=== PATIENT | female | born 1940 | race Caucasian/White ===

== ENCOUNTER 2016-08-05 12:53 | Emergency (ER) | payer MEDICARE, OTHER ==
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
[2016-08-05 15:50] LABS: Hematocrit 37 % (35-47); Hemoglobin 12.2 g/dl (12.0-16.0); Mean Corpuscular HGB Conc 33 g/dl (31-36); Mean Corpuscular Hemoglobin 28 pg (27-31); Mean Corpuscular Volume 83 fL (80-97); Mean Platelet Volume 10 um3 (7.4-10.4); Red Blood Count 4.44 10^6/ul (4.0-5.4); Red Cell Distribution Width 14 % (10.5-15); White Blood Count 8.4 10^3/ul (3.5-10.8)
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
[2016-08-05 16:15] LABS: BUN/Creatinine Ratio 30.7 (8-20); Calcium 9.6 mg/dL (8.6-10.3); EGFR African American 96.9 (>60); EGFR Non-African American 75.3 (>60); Potassium 3.5 mmol/L (3.5-5.0)
[2016-08-05] MEDS ORDERED: Iodixanol* (CONTRAST) 320 MG/ML 100 ML SDV IV ONE (16:23)
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
== END 2016-08-05 17:47 | disposition home or self-care (01) ==
LOC: ED 12:53
DX: S20.219A Contusion of unspecified front wall of thorax, initial encounter (principal); S09.90XA Unspecified injury of head, initial encounter; M25.562 Pain in left knee; M25.561 Pain in right knee; V48.5XXA Car driver injured in noncollision transport accident in traffic accident, initial encounter; Y92.410 Unspecified street and highway as the place of occurrence of the external cause; Z79.82 Long term (current) use of aspirin; E11.40 Type 2 diabetes mellitus with diabetic neuropathy, unspecified; I25.10 Atherosclerotic heart disease of native coronary artery without angina pectoris; E78.00 Pure hypercholesterolemia, unspecified; I10 Essential (primary) hypertension; J44.9 Chronic obstructive pulmonary disease, unspecified; K21.9 Gastro-esophageal reflux disease without esophagitis; R91.8 Other nonspecific abnormal finding of lung field; K76.0 Fatty (change of) liver, not elsewhere classified
CPT/HCPCS: 36415; 71260; 80048; 85025; 99281; Q9967

== ENCOUNTER 2016-08-10 12:50 | Emergency (ER) | payer OTHER ==
[2016-08-10] MEDS ORDERED: traMADol TAB* 50 MG PO ONE (15:48)
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
[2016-08-10 17:01] VITALS: BP 130/61
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
== END 2016-08-10 17:00 | disposition home or self-care (01) ==
LOC: ED 12:50
DX: M25.552 Pain in left hip (principal)
CPT/HCPCS: 72192; 99282; A9270-GY

== ENCOUNTER 2017-03-19 07:43 | Day surgery (SDC) | payer MEDICARE ==
[~2017-03-19 07:43] MED LIST: Buffered Lidocaine 0.9% SYRIN* 5 ML/SYR SYRINGE INTRADERM ONE
[2017-03-19] MEDS ORDERED: Buffered Lidocaine 0.9% SYRIN* 5 ML/SYR SYRINGE ONE (08:04)
[2017-03-19 08:31] LABS: Hematocrit 37 % (35-47); Hemoglobin 12.3 g/dl (12.0-16.0); Mean Corpuscular HGB Conc 33 g/dl (31-36); Mean Corpuscular Hemoglobin 29 pg (27-31); Mean Corpuscular Volume 86 fL (80-97); Mean Platelet Volume 10 um3 (7.4-10.4); Red Blood Count 4.31 10^6/ul (4.0-5.4); Red Cell Distribution Width 15 % (10.5-15); White Blood Count 5.8 10^3/ul (3.5-10.8)
[2017-03-19] MEDS ORDERED: oxyCODONE/Acetamin 5/325 MG* TAB PO PRN ×2 (08:39→09:49)
[2017-03-19] MEDS ORDERED: fentaNYL* 50 MCG/ML 2 ML VIAL (100 MCG VIAL) ONE (08:55)
[2017-03-19] MEDS ORDERED: Lidocaine 2% PF * 5 ML VIAL ONE (08:55)
[2017-03-19] MEDS ORDERED: Propofol* 10 MG/ML 20 ML BTL IV PUSH ONE (08:55)
[2017-03-19 10:22] VITALS: BP 154/71
--- NOTE | 2017-03-20 00:19 | OP ---
DATE OF OPERATION: 03/19/17 [facility] DATE OF : 42 SURGEON: Dr. Salo Cabral. ANESTHESIOLOGIST: Dr. Biju Bruce. ANESTHESIA: General endotracheal anesthesia. PRE-OP DIAGNOSIS: Thickened endometrium. POST-OP DIAGNOSIS: Thickened endometrium. OPERATIVE PROCEDURE: Dilation, hysteroscopy, curettage. ESTIMATED BLOOD LOSS: Minimal, less than 20 cc. FINDINGS: Small anteverted uterus. There is a palpable posterior fibroid that feels to be approximately 4 cm in size. The uterus sounds to 8. There were no adnexal masses palpated. There is wide appearing tissue on the posterior surface of the uterus. The tissue felt very hard and thick consistent with fibroid. COMPLICATIONS: None. COUNTS: Sponge, lap, and needle count correct x2. CONDITION: The patient was brought to recovery room awake and in stable condition. DESCRIPTION OF PROCEDURE: The patient was brought to the operating room. When general anesthesia was found to be adequate, the patient was prepped and draped in the usual sterile fashion in the dorsal lithotomy position. Exam under anesthesia was performed with the above findings noted. Weighted speculum was placed in the vagina. The anterior lip of the cervix was grasped with a single tooth tenaculum and the cervix was gently and easily dilated with a graduated Light dilators. The hysteroscope was introduced. An approximately 2 cm flat- appearing mass was noted in the posterior uterine wall. It is very white in appearance. Curettage was performed. Using operative scope, portion of the mass was excised with the scissors that felt very hard and consistent with a feeling of myoma. The curettings were sent to pathology. The single tooth tenaculum was removed from the anterior lip of the cervix. Excellent hemostasis was noted. All instruments were removed from the vagina and the patient was brought to the recovery room awake and in stable condition. [id number]/[facility] #: [id number] MATA
== END 2017-03-19 10:51 | disposition home or self-care (01) ==
LOC: OR 07:43
PROVIDERS: ATTEND Obstetrics & Gynecology
DX: N85.00 Endometrial hyperplasia, unspecified (principal); D25.9 Leiomyoma of uterus, unspecified; E11.9 Type 2 diabetes mellitus without complications; I10 Essential (primary) hypertension; J44.9 Chronic obstructive pulmonary disease, unspecified; M10.9 Gout, unspecified; Z79.84 Long term (current) use of oral hypoglycemic drugs
CPT/HCPCS: 36415; 85025; 86850; 86900; 86901; 88305; J2704; J3010

== ENCOUNTER 2017-07-08 09:14 | Emergency (ER) | payer MEDICARE ==
--- OUTSIDE RECORDS SUMMARY | 2017-07-08 10:02 | XMS REPORT ---
:1940 External Reference #:[id number] Author Organization [employer] Address [address] [place] [address] Phone [phone] Care Team Providers Name Role Phone Sunitha Benitez M.D. Primary Care Physician Unavailable Payers Type Date Identification Numbers Payment Provider Subscriber Medicare Primary Effective: Policy Number: Medicare - NGS Digna Arrieta 1997 [id number] PayID: [id number] [address] [place] [address] Medigap Part B Policy Number: [id number] [facility] Digna Arrieta PayID: [id number] [address] [place] [address] Problems Date Description Provider Status Onset: Neoplasm of breast Active Onset: Chronic obstructive lung disease Active Onset: Acid reflux Active Onset: Type 2 diabetes mellitus Active Onset: Essential hypertension Active Onset: Spinal stenosis Active Onset: Pure hypercholesterolemia Active Onset: 01/09/2015 Internal hordeolum Kassidy Vasquez O.D. Active Onset: 01/09/2015 Nuclear senile cataract Kassidy Vasquez O.D. Active Onset: 05/23/2015 Vitreous degeneration Kassidy Vasquez O.D. Active Onset: 05/23/2015 Blepharitis Kassidy Vasquez O.D. Active Onset: 06/26/2015 Retinal drusen Kassidy Vasquez O.D. Active Onset: 06/26/2015 Combined form of senile cataract Kassidy Vasquez O.D. Active Onset: 02/04/2016 Bilateral narrow angle of anterior Talon Mayes M.D. Active chamber of eyes Onset: 02/04/2016 Nonexudative age-related macular Talon Mayes M.D. Active degeneration Onset: 05/02/2016 Nexdtve age-related mclr degn, right Talon Mayes M.D. Active eye, stage unspecified Onset: 05/02/2016 Age-related exudative macular Talon Mayes M.D. Active degeneration of right eye Onset: 05/02/2016 Age-related nonexudative macular Talon Mayes M.D. Active degeneration of left eye Onset: 05/13/2016 Presence of intraocular lens Talon Mayes M.D. Active Onset: 05/15/2016 Nexdtve age-related mclr degn, Talon Mayes M.D. Active bilateral, early dry stage Onset: 07/15/2016 Age-related exudative macular Talon Mayes M.D. Active degeneration of right eye Onset: 06/09/2017 Punctate keratitis Talon Mayes M.D. 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 Visine Advanced 05/22/ Active Solution 0.05-0.1-1 three Kassidy Relief 2014 -1% times a Cassandra Vasquez, day as O.D. needed Glipizide / Active Tablets 10mg Unknown 0000 Metformin HCL / Active Tablets 500mg Unknown 0000 Aspirin / Active Tablets DR 81mg Unknown 0000 Losartan / Active Tablets 25mg Unknown Potassium 0000 Omeprazole / Active Capsules DR 10mg Unknown 0000 Simvastatin / Active Tablets 10mg Unknown 0000 Atenolol / Active Tablets 25mg Unknown 0000 Tamoxifen / Active Tablets 10mg Unknown Citrate 0000 Potassium / Active Tablets 75mg Unknown 0000 Magnesium / Active Capsules 300mg Unknown 0000 Vitamin D / Active Tablets 1000Unit 1 by Unknown (Cholecalcifero 0000 mouth l) twice a day Cinnamon / Active Capsules 500mg 1 by Unknown 0000 mouth every day Chromium / Active Tablets 200mcg Unknown 0000 Similasan Dry / Active Solution as needed Talon Ward Eye Relief 0000 Lincoln Mayes Ciprofloxacin 05/02/ Hx Solution 0.3% 10ml instill Surgical HCL 2016 - one drop Preop 06/09/ in the 2016 right eye three times a day, start the day before surgery Ketorolac 05/02/ Hx Solution 0.5% 10ml use one Surgical Tromethamine 2016 - drop in Preop 05/12/ the right 2016 eye three times a day, start the day before surgery Prednisolone 05/02/ Hx Suspension 1% 15ml 1 drops Talon Ward Acetate 2015 - left eye Arleo, 06/09/ three M.D. 2016 times a day. taper as directed Pilocarpine HCL 02/03/ Hx Solution 2% 15ml One drop H40.033 Talon Ward 2016 - in both Arleo, 05/06/ eyes once M.D. 2015 per day Systane 06/25/ Hx Gel 0.3% Kassidy Overnight 2014 - Cassandra Vasquez, Therapy 02/11/ O.D. Lubricant Eye 2017 Refresh Optive 01/08/ Hx Solution 0.5-0.9% 1 drop Kassidy 2014 - both eyes Cassandra Vasquez, 02/11/ three O.D. 2017 times a day Medications Administered in Office Medication Date Status Form Strength Qnty SIG Indications Ordering Provider Avastin Administered Injection Talon Ward Bevacizumab Tsering Mayes M.D. Avastin Administered Injection Talon Ward Bevacizumab Tsering Mayes M.D. Avastin Administered Injection Talon Ward Bevacizumab Tsering Mayes M.D. Avastin Administered Injection Talon Ward Bevacizumab 017 Lincoln Mayes Avastin Administered Injection Talon Ward Bevacizumab 017 Lincoln Mayes Avastin Administered Injection Talon Ward Bevacizumab 017 Lincoln Mayes Avastin Administered Injection Talon Ward Bevacizumab 017 Lincoln Mayes Avastin Administered Injection Talon Ward Bevacizumab 017 Lincoln Mayes Avastin Administered Injection Talon Ward Bevacizumab 016 Lincoln Mayes Avastin Administered Injection Talon Ward Bevacizumab 016 Lincoln Mayes Vital Signs Date Vital Result Comment 06/08/2017 BP Systolic 115 mmHg BP Diastolic 66 mmHg Heart Rate 66 /min Respiratory Rate 14 /min 04/20/2017 BP Systolic 126 mmHg BP Diastolic 63 mmHg Heart Rate 64 /min Respiratory Rate 14 /min 02/02/2017 BP Systolic 118 mmHg BP Diastolic 60 mmHg Heart Rate 62 /min Respiratory Rate 15 /min 12/29/2016 BP Systolic 124 mmHg BP Diastolic 56 mmHg Heart Rate 68 /min Respiratory Rate 14 /min 11/24/2016 BP Systolic 137 mmHg BP Diastolic 78 mmHg Heart Rate 67 /min Respiratory Rate 14 /min 10/27/2016 BP Systolic 130 mmHg BP Diastolic 60 mmHg Heart Rate 76 /min Respiratory Rate 12 /min 09/30/2016 BP Systolic 136 mmHg BP Diastolic 70 mmHg Heart Rate 70 /min Respiratory Rate 12 /min 07/15/2016 BP Systolic 138 mmHg BP Diastolic 65 mmHg Heart Rate 64 /min Respiratory Rate 16 /min 06/10/2016 BP Systolic 151 mmHg BP Diastolic 85 mmHg Heart Rate 66 /min Respiratory Rate 16 /min 05/06/2016 BP Systolic 181 mmHg BP Diastolic 95 mmHg Heart Rate 70 /min Respiratory Rate 16 /min Results Test Date Test Result H/L Range Note Laboratory test finding 05/14/2016 Point of Care Glucose 144 mg/dL High 74 -106 1 Laboratory test finding 05/07/2016 Point of Care Glucose 161 mg/dL High 74 -106 2 1 Cab Driver: [id number] MONTEZ Villeda 2 Cab Driver: [id number] KATHARINA BARFIELD Procedures Date CPT Code Description Status 06/08/2017 53699 Injection Intravitreal Of A Pharmacologic Agent Completed 04/20/2017 13451 Injection Intravitreal Of A Pharmacologic Agent Completed 02/12/2017 31371 Scanning Computerized Opthalmic Diagnostic Posterior Completed Seg Retina 02/12/2017 82587 Est Patient Comprehensive Exam Completed 02/02/2017 55940 Injection Intravitreal Of A Pharmacologic Agent Completed 12/29/2016 07533 Injection Intravitreal Of A Pharmacologic Agent Completed 11/24/2016 73838 Injection Intravitreal Of A Pharmacologic Agent Completed 11/11/2016 35049 Est Patient Comprehensive Exam Completed 11/11/2016 18575 Scanning Computerized Opthalmic Diagnostic Posterior Completed Seg Retina 10/27/2016 10375 Injection Intravitreal Of A Pharmacologic Agent Completed 09/30/2016 46468 Injection Intravitreal Of A Pharmacologic Agent Completed 08/13/2016 16167 Scanning Computerized Opthalmic Diagnostic Posterior Completed Seg Retina 08/13/2016 09563 Est Patient Intermediate Exam Completed 07/15/2016 77165 Injection Intravitreal Of A Pharmacologic Agent Completed 06/10/2016 04196 Injection Intravitreal Of A Pharmacologic Agent Completed 05/14/2016 25061 Extracapsular Cataract Extraction W/Intraocular Lens Completed 05/07/2016 00799 Extracapsular Cataract Extraction W/Intraocular Lens Completed 05/06/2016 17947 Injection Intravitreal Of A Pharmacologic Agent Completed 05/02/2016 92952 Ophthalmic Biometry Completed 05/02/2016 08847 Ophthalmic Biometry Completed 05/02/2016 83519 Scanning Computerized Opthalmic Diagnostic Posterior Completed Seg Retina 02/04/2016 15084 Gonioscopy Completed 02/04/2016 71283 Est Patient Intermediate Exam Completed 06/26/2015 65963 Est Patient Intermediate Exam Completed 05/23/2015 29341 Est Patient Comprehensive Exam Completed 01/09/2015 42916 Est Patient Comprehensive Exam Completed 05/31/2012 55816 New Patient Comprehensive Exam Completed 05/31/2012 79268 Determination Of Refractive State Completed 06/18/2009 91771 Scanning Laser W/Interp And Report Completed 06/18/2009 02859 Determination Of Refractive State Completed 06/18/2009 07668 Est Patient Comprehensive Exam Completed 06/16/2009 65719 New Patient Intermediate Exam Completed 06/07/2004 33095 Fundus Photography With Interpretation And Report Completed 06/07/2004 50007 Determination Of Refractive State Completed 06/07/2004 05007 New Patient Comprehensive Exam Completed Encounters Type Date Location Provider CPT E/M Dx Office Visit 05/02/2016 Talon Mayes MD, [place], [address] H25.812 9:45a pc M.D. H25.811 H40.033 E11.9 H35.3211 H35.3121 Plan of Care Future Appointment(s):06/15/2017 11:30 am - Talon Mayes M.D. at Talon Mayes MD, 06/09/2017 - Talon Mayes M.D.H16.141 Punctate keratitis, right eyeComments:Smoking can increase the risk of developing or worsening any eye related disease, as well as affect your overall health. If you are a smoker , we strongly recommend that you quit.If you are not a smoker, we strongly recommend that you do not start.
--- OUTSIDE RECORDS SUMMARY | 2017-07-08 10:02 | XMS REPORT ---
:1940 External Reference #:[id number] Author Organization [employer] Address [address] [place] [address] Phone [phone] Care Team Providers Name Role Phone Sunitha Benitez M.D. 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 Warm Compresses 06/25/ Active twice a Kassidy 2014 day as danette Rea O.D. Glipizide / Active Tablets 10mg Unknown 0000 [...] D / Active Tablets 1000Unit 1 by mouth Unknown (Cholecalcifero 0000 twice a l) day Cinnamon / Active Capsules 500mg 1 by mouth Unknown 0000 every day Chromium / Active Tablets 200mcg Unknown 0000 Similasan Dry / Active Solution at least 4 Talon J. Eye Relief 0000 times a Arleo, day M.D. Atenolol-Chlort / Active Tablets 50-25mg Unknown halidone 0000 Klor-Con M20 / Active Tablets ER 20Meq Unknown 0000 Ciprofloxacin 05/02/ Hx Solution 0.3% 10ml instill [...] 1% 15ml 1 drops Talon Ward Acetate 2016 - left eye Arleo, 06/09/ three M.D. 2016 times a day. taper as directed Pilocarpine HCL 02/03/ Hx Solution 2% 15ml One drop H40.033 Talon Ward 2016 - in both Arleo, 05/06/ eyes once M.D. 2016 per day Systane 06/25/ Hx Gel 0.3% Kassidy Overnight 2014 - Cassandra Vasquez, Therapy 02/11/ O.D. Lubricant Eye 2017 Refresh Optive 01/08/ Hx Solution 0.5-0.9% 1 drop Kassidy 2014 - both eyes Cassandra Vasquez, 02/11/ three O.D. 2017 times a day Medications Administered in Office Medication Date Status Form Strength Qnty SIG Indications Ordering Provider Avastin Administered Injection Talon Ward Bevacizumab 017 [...] 161 mg/dL High 74 -[address] Operator: [id number] MONTEZ Villed[address] Operator: [id number] BARFIELD Procedures Date CPT Code Description Status 06/08/2017 65915 Injection Intravitreal Of A Pharmacologic Agent Completed 04/20/2017 65712 Injection Intravitreal Of A Pharmacologic Agent Completed 02/12/2017 70019 Scanning Computerized Opthalmic Diagnostic Posterior Completed Seg Retina 02/12/2017 98908 Est Patient Comprehensive Exam Completed 02/02/2017 22976 Injection Intravitreal Of A Pharmacologic Agent Completed 12/29/2016 57422 Injection Intravitreal Of A Pharmacologic Agent Completed 11/24/2016 51215 Injection Intravitreal Of A Pharmacologic Agent Completed 11/11/2016 80474 Est Patient Comprehensive Exam Completed 11/11/2016 83077 Scanning Computerized Opthalmic Diagnostic Posterior Completed Seg Retina 10/27/2016 12639 Injection Intravitreal Of A Pharmacologic Agent Completed 09/30/2016 79440 Injection Intravitreal Of A Pharmacologic Agent Completed 08/13/2016 56233 Scanning Computerized Opthalmic Diagnostic Posterior Completed Seg Retina 08/13/2016 02328 Est Patient Intermediate Exam Completed 07/15/2016 58641 Injection Intravitreal Of A Pharmacologic Agent Completed 06/10/2016 30149 Injection Intravitreal Of A Pharmacologic Agent Completed 05/14/2016 31431 Extracapsular Cataract Extraction W/Intraocular Lens Completed 05/07/2016 06243 Extracapsular Cataract Extraction W/Intraocular Lens Completed 05/06/2016 88800 Injection Intravitreal Of A Pharmacologic Agent Completed 05/02/2016 67598 Ophthalmic Biometry Completed 05/02/2016 69379 Ophthalmic Biometry Completed 05/02/2016 01218 Scanning Computerized Opthalmic Diagnostic Posterior Completed Seg Retina 02/04/2016 98004 Gonioscopy Completed 02/04/2016 29874 Est Patient Intermediate Exam Completed 06/26/2015 96328 Est Patient Intermediate Exam Completed 05/23/2015 81945 Est Patient Comprehensive Exam Completed 01/09/2015 75736 Est Patient Comprehensive Exam Completed 05/31/2012 78213 New Patient Comprehensive Exam Completed 05/31/2012 96500 Determination Of Refractive State Completed 06/18/2009 22035 Scanning Laser W/Interp And Report Completed 06/18/2009 01858 Determination Of Refractive State Completed 06/18/2009 51849 Est Patient Comprehensive Exam Completed 06/16/2009 54095 New Patient Intermediate Exam Completed 06/07/2004 67538 Fundus Photography With Interpretation And Report Completed 06/07/2004 14912 Determination Of Refractive State Completed 06/07/2004 17169 New Patient Comprehensive Exam Completed Encounters Type Date Location Provider CPT E/M Dx Office Visit 05/02/2016 Talon Mayes MD, Talon Mayes, [address] H25.812 9:45a gerda Stark H25.811 H40.033 E11.9 H35.3211 H35.3121 Plan of Care 06/15/2017 - Talon Mayes M.D.H35.3211 Exdtve age-rel mclr degn, right eye, with actv chrdl neovasComments:Smoking can increase the risk of developing or worsening any eye related disease, as well as affect your overall health. If you are a smoker, we strongly recommend that you quit.If you are not a smoker, we strongly recommend that you do not start. Dr. Mayes can detect changes in your Macular Degeneration that require treatment in your right eye. It is very important to keep all of your appointments and follow Dr. Mayes's instructions. If you have any questions, please call our office.Follow up:See Procedure Order LogH35.3121 Nexdtve age-related mclr degn, left eye, early dry stageComments:You have Macular Degeneration. Check your Amsler Grid, with each eye separately, and take the AREDS II formula vitamins. If you notice any changes in your vision, please call the office and schedule anappointment to see any of the doctors here.E11.9 Type 2 diabetes mellitus without complicationsComments:You have diabetes. I do not detect any changes in both of your retinas from diabetes at this time. Proper control of your diabetes is important for the health of your eyes. Changes in your eyes from diabetes can happen without symptoms, so it is important that you have your eyes examined. Dr. Mayes has sent a report to your primary care doctor, letting them know there is no damage from the Diabetes in your eyes.Z96.1 Presence of intraocular lensComments:The artificial lens implants in both eyes appear to be stable at this time.
--- NOTE | 2017-07-08 10:15 | RAD ---
HISTORY: Right foot pain, toe pain, history of gout, trauma COMPARISONS: May 21, 2013 VIEWS: 6, Frontal, lateral, and oblique views of the right foot and of the first digit of the right foot FINDINGS: BONE DENSITY: Normal. BONES: There is no displaced fracture. There is a calcaneal enthesophyte. JOINTS: There is mild osteoarthritis of the first MTP joint. ALIGNMENT: There is no dislocation. SOFT TISSUES: Unremarkable. OTHER FINDINGS: None. IMPRESSION: NO ACUTE OSSEOUS INJURY. IF SYMPTOMS PERSIST, RECOMMEND REPEAT IMAGING.
[2017-07-08] MEDS ORDERED: Cephalexin CAP* 500 MG PO ONE (11:09)
--- NOTE | 2017-07-08 11:15 | ED ---
Shmuel Roldan Tecjoon, scribed for Jean-Pierre Patricia MD on 07/08/17 at 1102 . Lower Extremity - HPI Summary HPI Summary: This patient is a 77 year old female presenting to [facility] accompanied by family with a chief complaint of right toe injury since 3 days ago. Patient states that a can fell on her right toe and injured it on . The pain is rated 8/10 in severity. Symptoms aggravated by movement, palpation.. Symptoms alleviated by nothing. The patient reports no other complaints at this time. - History of Current Complaint Chief Complaint: EDExtremityLower Stated Complaint: RIGHT FOOT PAIN Time Seen by Provider: 07/08/17 10:34 Hx Obtained From: Patient Mechanism Of Injury: Blunt Trauma - dropped can Onset of Pain: Immediate Onset/Duration: Still Present - 3 Severity Currently: Severe Pain Intensity: 8 Pain Scale Used: 0-10 Numeric Timing: Constant Location: Is Discrete @ - right toe Aggravating Factor(s): Movement, Other - palpation Alleviating Factor(s): Nothing - Allergies/Home Medications Allergies/Adverse Reactions: Allergies Allergy/AdvReac Type Severity Reaction Status Date / Time Naproxen [From Naprosyn] Allergy Mild Swelling Verified 03/19/17 08:09 Of Face,Lips,& Throat PAPER TAPE Allergy Rash Uncoded 03/19/17 08:09 PMH/Surg Hx/FS Hx/Imm Hx Previously Healthy: No Endocrine/Hematology History: Reports: Hx Diabetes - TYPE 2, Hx Anemia - on iron Denies: Hx Anticoagulant Therapy - 81mg ASA daily, Hx Blood Disorders Cardiovascular History: Reports: Hx Coronary Artery Disease - CHOLESTEROL CONTROL WITH MED, Hx Hypertension - W/MEDS, 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 RIGHT BREAST LUMPECTOMY AGE 20, [facility]. 1972 BILATERAL TUBAL LIGATION, [facility]. TONSILECTOMY, AGE 12. FACIAL SKIN CANCER. CATARACT REPAIR. 03/19/17 - D & C Hx Anesthesia Reactions: No Infectious Disease History: No Infectious Disease History: Denies: Traveled Outside the [place] in Last 30 Days - Family History Known Family History: Positive: Diabetes - Social History Alcohol Use: None Hx Substance Use: No Substance Use Type: Reports: None Hx Tobacco Use: No Smoking Status (MU): Never Smoked Tobacco Have You Smoked in the Last Year: No Review of Systems Negative: Fever Positive: Other - right toe pain All Other Systems Reviewed And Are Negative: Yes Physical Exam Triage Information Reviewed: Yes Vital Signs On Initial Exam: Initial Vitals Temp Pulse Resp BP Pulse Ox 97.0 F 67 16 131/55 97 07/08/17 09:16 07/08/17 09:16 07/08/17 09:16 07/08/17 09:16 07/08/17 09:16 Vital Signs Reviewed: Yes Appearance: Positive: Well-Appearing, No Pain Distress Skin: Positive: Other - redness skin over the 1st toe right foot MP area. Head/Face: Positive: Normal Head/Face Inspection Neck: Positive: Supple, Nontender Respiratory/Lung Sounds: Positive: Clear to Auscultation, Breath Sounds Present Cardiovascular: Positive: RRR, Pulses are Symmetrical in both Upper and Lower Extremities. Negative: Murmur Musculoskeletal: Positive: Other - slight tenderness over the right 1st MP joint right foot. with mild erythema over the same area. Neurological: Positive: Normal, Sensory/Motor Intact, Alert, Oriented to Person Place, Time, CN Intact II-III Psychiatric: Positive: Normal - Marc Coma Scale Best Eye Response: 4 - Spontaneous Best Motor Response: 6 - Obeys Commands Best Verbal Response: 5 - Oriented Coma Scale Total: 15 Diagnostics - Vital Signs Vital Signs Temp Pulse Resp BP Pulse Ox 07/08/17 09:16 97.0 F 67 16 131/55 97 - Laboratory Lab Statement: Any lab studies that have been ordered have been reviewed, and results considered in the medical decision making process. - Radiology Toe XR Xray Interpretation: No Acute Changes - IMPRESSION: NO ACUTE OSSEOUS INJURY. IF SYMPTOMS PERSIST, RECOMMEND REPEAT IMAGING. ED physician has reviewed this radiology report. Radiology Interpretation Completed By: Radiologist Foot XR Xray Interpretation: No Acute Changes - IMPRESSION: NO ACUTE OSSEOUS INJURY. IF SYMPTOMS PERSIST, RECOMMEND REPEAT IMAGING. ED physician has reviewed this radiology report. Radiology Interpretation Completed By: Radiologist Lower Extremity Course/Dx - Course Course Of Treatment: This patient is a 77 year old female presenting to [facility] accompanied by family with a chief complaint of right toe injury since 3 days ago. Patient states that a can fell on her right toe and injured it on neel. The pain is rated 8/10 in severity. Symptoms aggravated by movement, palpation.. Symptoms alleviated by nothing. The patient reports no other complaints at this time. Toe XR reveals, per radiologist, IMPRESSION: NO ACUTE OSSEOUS INJURY. IF SYMPTOMS PERSIST, RECOMMEND REPEAT IMAGING. ED physician has reviewed this radiology report. Foot XR reveals, per radiologist, IMPRESSION: NO ACUTE OSSEOUS INJURY. IF SYMPTOMS PERSIST, RECOMMEND REPEAT IMAGING. ED physician has reviewed this radiology report. In the ED course the patient was given Keflex. 77 yr old with injury to right great toe MP area and no some early cellulitis. Will rx with keflex and then DC home to follow up with PMD. Post op shoe - Diagnoses Provider Diagnoses: Cellulitis of toe of left foot Discharge - Discharge Plan Condition: Good Disposition: HOME Prescriptions: Cephalexin CAP* [Keflex CAP*] 500 mg PO QID #40 cap Patient Education Materials: Cellulitis (ED), Contusion in Adults (ED) Referrals: Sunitha Zambrano MD [Primary Care Provider] - 2 Days The documentation as recorded by the Shmuel turk Tecjoon accurately reflects the service I personally performed and the decisions made by , Jean-Pierre Patricia MD.
[2017-07-08 11:40] VITALS: BP 135/59
== END 2017-07-08 11:39 | disposition home or self-care (01) ==
LOC: ED 09:14
DX: L03.032 Cellulitis of left toe (principal)
CPT/HCPCS: 99282; A9270-GY

== ENCOUNTER 2018-01-31 08:32 | Emergency (ER) | payer MEDICARE ==
--- OUTSIDE RECORDS SUMMARY | 2018-01-31 08:44 | XMS REPORT ---
:1940 External Reference #:[id number] Author Organization [employer] Address [address] [place] [address] Phone [phone] Care Team Providers Name Role Phone Sunitha Benitez M.D. Primary Care Physician Unavailable Payers Type Date Identification Numbers Payment Provider Subscriber Medicare Primary Effective: Policy Number: Medicare - NGS Digna Arrieta 1998 [id number] PayID: [id number] [address] [place] [address] Medigap Part B Policy Number: [id number] [facility] Digna Arrieta PayID: [id number] [address] [place] [address] Problems Date Description Provider Status Onset: Neoplasm [...] 06/09/2017 Punctate keratitis Talon Mayes M.D. Active Onset: 01/04/2018 Retinal edema Talon Mayes M.D. 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 ETOH Use Denies alcohol [...] 06/09/ Active Solution 0.25% at least 4 Talon Ward 2017 times a Arleo, day M.DBrandy Warm Compresses 06/25/ Active twice a Kassidy 2014 as danette Rea OMeek Glipizide / Active Tablets 10mg Unknown 0000 [...] Unknown (Cholecalcifero 0000 twice a l) day Chromium / Active Tablets 200mcg Unknown Similasan Dry / Active Solution at least 4 Talon Ed Eye Relief 0000 times a Arleo, day [...] Provider Avastin Administered Injection Talon Ward Bevacizumab 018 Lincoln Mayes Avastin Administered Injection Talon Ward Bevacizumab 018 [place] Mayes Avastin Administered Injection Talon Ward Bevacizumab 018 [place] Mayes Avastin Administered Injection Talon Ward [...] Mayes Vital Signs Date Vital Result Comment 01/04/2018 BP Systolic 126 mmHg BP Diastolic 60 mmHg Heart Rate 62 /min Respiratory Rate 16 /min 10/26/2017 BP Systolic 113 mmHg BP Diastolic 68 mmHg Heart Rate 65 /min Respiratory Rate 15 /min 08/24/2017 BP Systolic 129 mmHg BP Diastolic 67 mmHg Heart Rate 65 /min Respiratory Rate 15 /min 06/08/2017 BP Systolic 115 mmHg BP Diastolic [...] 161 mg/dL High 74 -106 2 1 Dinkey Engine Mechanic: INES MONTEZ STEFANIE Villeda 2 Dinkey Engine Mechanic: [id number] KATHARINA BARFIELD Procedures Date CPT Code Description Status 01/04/2018 35766 Injection Intravitreal Of A Pharmacologic Agent Completed 10/26/2017 84390 Injection Intravitreal Of A Pharmacologic Agent Completed 08/24/2017 65787 Injection Intravitreal Of A Pharmacologic Agent Completed 06/15/2017 87455 Scanning Computerized Opthalmic Diagnostic Posterior Completed Seg Retina 06/15/2017 68095 Est Patient Intermediate Exam Completed 06/08/2017 57967 Injection Intravitreal Of A Pharmacologic Agent Completed 04/20/2017 02698 Injection Intravitreal Of A Pharmacologic Agent Completed 02/12/2017 76749 Scanning Computerized Opthalmic Diagnostic Posterior Completed Seg Retina 02/12/2017 82537 Est Patient Comprehensive Exam Completed 02/02/2017 67367 Injection Intravitreal Of A Pharmacologic Agent Completed 12/29/2016 31411 Injection Intravitreal Of A Pharmacologic Agent Completed 11/24/2016 90808 Injection Intravitreal Of A Pharmacologic Agent Completed 11/11/2016 48940 Scanning Computerized Opthalmic Diagnostic Posterior Completed Seg Retina 11/11/2016 20268 Est Patient Comprehensive Exam Completed 10/27/2016 40993 Injection Intravitreal Of A Pharmacologic Agent Completed 09/30/2016 28019 Injection Intravitreal Of A Pharmacologic Agent Completed 08/13/2016 11797 Scanning Computerized Opthalmic Diagnostic Posterior Completed Seg Retina 08/13/2016 52099 Est Patient Intermediate Exam Completed 07/15/2016 57684 Injection Intravitreal Of A Pharmacologic Agent Completed 06/10/2016 16933 Injection Intravitreal Of A Pharmacologic Agent Completed 05/14/2016 55493 Extracapsular Cataract Extraction W/Intraocular Lens Completed 05/07/2016 54028 Extracapsular Cataract Extraction W/Intraocular Lens Completed 05/06/2016 78012 Injection Intravitreal Of A Pharmacologic Agent Completed 05/02/2016 85797 Ophthalmic Biometry Completed 05/02/2016 84704 Ophthalmic Biometry Completed 05/02/2016 20634 Scanning Computerized Opthalmic Diagnostic Posterior Completed Seg Retina 02/04/2016 27489 Gonioscopy Completed 02/04/2016 49460 Est Patient Intermediate Exam Completed 06/26/2015 84236 Est Patient Intermediate Exam Completed 05/23/2015 13962 Est Patient Comprehensive Exam Completed 01/09/2015 82316 Est Patient Comprehensive Exam Completed 05/31/2012 84053 Determination Of Refractive State Completed 05/31/2012 78706 New Patient Comprehensive Exam Completed 06/18/2009 61763 Scanning Laser W/Interp And Report Completed 06/18/2009 85953 Determination Of Refractive State Completed 06/18/2009 17376 Est Patient Comprehensive Exam Completed 06/16/2009 41131 New Patient Intermediate Exam Completed 06/07/2004 03696 Fundus Photography With Interpretation And Report Completed 06/07/2004 64354 Determination Of Refractive State Completed 06/07/2004 25105 New Patient Comprehensive Exam Completed Encounters Type Date Location Provider CPT E/M Dx Office Visit 05/02/2016 Talon Mayes MD, [place], [address] H25.812 9:45a gerda Stark H25.811 H40.033 E11.9 H35.3211 H35.3121 Plan of Care 01/15/2018 - Talon Mayes M.D.H35.3211 Exdtve age-rel mclr [...] you have any questions, please call our office. You havewet Macular Degeneration. Check your Amsler Grid, with each eye separately, and take the AREDS II formula vitamins. If you notice any changes in your vision, please call the office and schedule an appointment to see any of the doctors here.Follow up:See Procedure Order [id number] Nexdtve age-related mclr [...]
[2018-01-31] MEDS ORDERED: Ibuprofen TAB* 600 MG PO ONE (09:08)
--- NOTE | 2018-01-31 09:31 | ED ---
Neck Pain - HPI Summary HPI Summary: 77-year-old female presents with neck pain for the past 2 days. States she was moving vine and develop pain on the right side of her neck. No midline tenderness. No weakness. No numbness and tingling. No other injury. Patient has been massage area and placing heat and ice. She states she cannot sleep due to the pain. She denies any history of neck pain. She has had previous lower back surgeries. No headache. No fevers. No neck stiffness. She isn't taking Tylenol for pain. - History of Current Complaint Chief Complaint: EDNeckComplaint Stated Complaint: NECK PAIN Time Seen by Provider: 01/31/18 08:57 Pain Intensity: 7 - Allergies/Home Medications Allergies/Adverse Reactions: Allergies Allergy/AdvReac Type Severity Reaction Status Date / Time naproxen Allergy Intermediate Swelling Verified 09/28/17 12:05 Of Face,Lips,& Throat PAPER TAPE Allergy Rash Uncoded 03/19/17 08:09 PMH/Surg Hx/FS Hx/Imm Hx Endocrine/Hematology History: Reports: Hx Diabetes - TYPE 2, Hx Anemia - on iron Denies: Hx Anticoagulant Therapy - 81mg ASA daily, Hx Blood Disorders Cardiovascular History: Reports: Hx Coronary Artery Disease - CHOLESTEROL CONTROL WITH MED, Hx Hypertension - W/MEDS, 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 RIGHT BREAST LUMPECTOMY AGE 20, [place]. 1971 BILATERAL TUBAL LIGATION, [place]. TONSILECTOMY, AGE 12. FACIAL SKIN CANCER. CATARACT REPAIR. 03/19/17 - D & C Hx Anesthesia Reactions: No Infectious Disease History: No Infectious Disease History: Denies: Traveled Outside the [place] in Last 30 Days - Family History Known Family History: Positive: Diabetes - Social History Alcohol Use: None Hx Substance Use: No Substance Use Type: Reports: None Hx Tobacco Use: No Smoking Status (MU): Never Smoked Tobacco Have You Smoked in the Last Year: No Review of Systems Negative: Fever Negative: Chest Pain Negative: Shortness Of Breath Positive: Myalgia - neck pain All Other Systems Reviewed And Are Negative: Yes Physical Exam Triage Information Reviewed: Yes Vital Signs On Initial Exam: Initial Vitals Temp Pulse Resp BP Pulse Ox 97.6 F 66 16 142/64 96 01/31/18 08:34 01/31/18 08:34 01/31/18 08:34 01/31/18 08:34 01/31/18 08:34 Vital Signs Reviewed: Yes Appearance: Positive: Well-Appearing Skin: Positive: Warm, Dry Head/Face: Positive: Normal Head/Face Inspection Eyes: Positive: Normal, Conjunctiva Clear ENT: Positive: Pharynx normal Neck: Positive: Other: - tenderness right side of neck, no midline tenderness, full ROM of neck Respiratory/Lung Sounds: Positive: Clear to Auscultation, Breath Sounds Present Cardiovascular: Positive: Normal, RRR Musculoskeletal: Positive: Strength/ROM Intact - arms, Other - good pulses, Neurological: Positive: Reflexes Intact - biceps Diagnostics - Vital Signs Vital Signs Temp Pulse Resp BP Pulse Ox 01/31/18 08:34 97.6 F 66 16 142/64 96 - Laboratory Lab Statement: Any lab studies that have been ordered have been reviewed, and results considered in the medical decision making process. Neck Course/Dx - Course Course Of Treatment: 77-year-old female presents with neck pain for the past 2 days. States she was moving vine and develop pain on the right side of her neck. No midline tenderness. No weakness. No numbness and tingling. No other injury. Patient has been massage area and placing heat and ice. She states she cannot sleep due to the pain. She denies any history of neck pain. She has had previous lower back surgeries. No headache. No fevers. No neck stiffness. She isn't taking Tylenol for pain. on exam has tenderness right side of neck. no midline tenderness neck. neck xray no acute findings. will use lidocaine patch and flexeril for pain. patient understand and agrees with plan. - Diagnoses Differential Dx/HQI/PQRI: Positive: Cervical Fracture, Sprain, Strain Provider Diagnoses: Neck pain Discharge - Sign-Out/Discharge Documenting (check all that apply): Patient Departure - Discharge Plan Condition: Good Disposition: HOME Patient Education Materials: Neck Pain (ED) Referrals: Sunitha Zambrano MD [Primary Care Provider] - Additional Instructions: Apply lidocaine patches to area for up to 12 hours in one 24 hour period Take muscle relaxers three times a day Use ibuprofen or Tylenol for pain every 6 hours ice/heat area, move as much as possible Follow up with primary within 5 days Return to ED if develop any new or worsening symptoms - Billing Disposition and Condition Condition: GOOD Disposition: Home
--- NOTE | 2018-01-31 09:59 | RAD ---
INDICATION: Neck pain COMPARISON: None TECHNIQUE: Routine five-view imaging was performed FINDINGS: Bones: There are no acute bony findings. There are arthritic changes consisting of minor multilevel facet arthropathy. Craniocervical junction: The odontoid and atlantodental interval are normal. Alignment: Normal Disc spaces: The disc spaces are well-maintained Soft tissues: The prevertebral soft tissues are normal. IMPRESSION: MILD MULTILEVEL FACET ARTHROPATHY. NO ACUTE FINDINGS.
[2018-01-31] MEDS ORDERED: Lidocaine PATCH 5%* 1 PATCH TRANSDERM ONE (10:00)
[2018-01-31 10:44] VITALS: BP 138/64
== END 2018-01-31 10:43 | disposition home or self-care (01) ==
LOC: ED 08:32
DX: M54.2 Cervicalgia (principal); E11.9 Type 2 diabetes mellitus without complications
CPT/HCPCS: 72050; 99282; A9270-GY